=== PATIENT | male | born 1965 | race American Indian/Alaskan Native ===

== ENCOUNTER 2018-03-07 12:18 | Inpatient (IN) | payer OTHER ==
[2018-03-07] MEDS ORDERED: MORPHINE IV PRN (13:40)
[2018-03-07] MEDS: LOVENOX SUB-Q SCH (15:52)
[2018-03-07 16:22] LABS: Basophils % (Auto) 0.1 % (0.0-1.8); Hematocrit 34.8 % (35.5-45.6); Hemoglobin 11.8 gm/dl (11.8-15.2); Lymphocytes # (Auto) 0.6 K/mm3 (1.2-5.4); Lymphocytes % (Auto) 9.8 % (13.4-35.0); Mean Corpuscular HGB Conc 34 % (32-34); Mean Corpuscular Hemoglobin 31 pg (28-32); Mean Corpuscular Volume 93 fl (84-94); Monocytes # (Auto) 0.5 K/mm3 (0.0-0.8); Platelet Count 166 K/mm3 (140-440); Red Blood Count 3.76 M/mm3 (3.65-5.03); Red Cell Distribution Width 15.1 % (13.2-15.2)
[2018-03-07 16:27] LABS: INR 0.92 (0.87-1.13)
[2018-03-07 16:28] LABS: Partial Thromboplastin Time 28.3 Sec. (24.2-36.6)
[2018-03-07 16:33] LABS: Uric Acid 7.4 mg/dL (3.5-7.6)
[2018-03-07 16:34] LABS: Chol/HDL Ratio 1.6 %
[2018-03-07 16:36] LABS: Alanine Aminotransferase 10 units/L (7-56); Albumin 3.7 g/dL (3.9-5); BUN/Creatinine Ratio 10; Blood Urea Nitrogen 7 mg/dL (9-20); Hemolysis Index 2
[2018-03-07] MEDS: PEPCID IV SCH (17:54)
[2018-03-07] MEDS ORDERED: NORCO 5/325 PO PRN (17:57)
--- NOTE | 2018-03-07 18:25 | History and Physical Report ---
History of Present Illness Date of examination: 03/07/18 Date of admission: 03/07/18 13:50 Chief complaint: Left knee pain and swelling of the left knee. History of present illness: This is a 52 year old male with a history of hypertension , alcohol use disorder ,gout and recurrent left knee pain with effusion who presented to our office yesterday with pain and swelling of the left knee. He was unable to ambulate. The patient drinks multiple bears daily and has had recurrent left knee effusion with drainage. Last drainage with intra-arthicular depomedrol injection was done on 03/06/18 in the office and yielded 110cc serous fluid. Despite knee drainage, the patient continued to complain of excruciating pain and difficulty walking. He call our offcie with same none relenting pain. with swelling. The patient was then admitted to the hospital for possible cellulites. The patient has been referred to orthopedic in the past but did not consistently f/u. Medications and Allergies Allergies Allergy/AdvReac Type Severity Reaction Status Date / Time No Known Allergies Allergy Verified 04/24/15 07:56 Home Medications Medication Instructions Recorded Confirmed Last Taken Type Ibuprofen [Motrin] 800 mg PO Q8H #30 tablet 05/18/14 03/07/18 Unknown Rx Colchicine 0.6 mg PO BID 04/24/15 03/07/18 04/23/15 History NexIUM 40 mg PO DAILY 04/24/15 03/07/18 04/23/15 History HYDROcodone/APAP 5-325 [[place] 1 each PO Q6HR PRN #12 tablet 02/14/16 03/07/18 Unknown Rx 5/325] Allopurinol [Zyloprim] 300 mg PO QDAY 03/07/18 03/07/18 Unknown History Amlodipine Besylate/Benazepril 1 each PO DAILY 03/07/18 03/07/18 Unknown History [Amlodipine-Benazepril 5-10 mg] Folic Acid [Folvite] 1 mg PO QDAY 03/07/18 03/07/18 Unknown History Active Meds: Active Medications Acetaminophen/Hydrocodone Bitart ([place] 5/325) 1 each PO Q6HR PRN PRN Reason: Pain Colchicine (Colchicine) 0.6 mg PO BID [facility] Enoxaparin Sodium (Lovenox) 40 mg SUB-Q QDAY [facility] Last Admin: 03/07/18 15:52 Dose: 40 mg Famotidine (Pepcid) 20 mg IV QDAY JUAN J Last Admin: 03/07/18 17:54 Dose: 20 mg Folic Acid (Folvite) 1 mg PO QDAY JUAN J Hydromorphone HCl (Dilaudid) 2 mg IV Q4H PRN PRN Reason: Pain , Severe (7-10) Ceftriaxone Sodium (Rocephin/Ns 1 Gm/50 Ml) 1 gm in 50 mls @ 100 mls/hr IV Q24HR JUAN J; Protocol Ibuprofen (Motrin) 800 mg PO Q8H JUAN J Miscellaneous Medication (Amlodipine Besylate/Benazepril [Amlodipine-Benazepril 5-10 Mg]) 10 each PO DAILY [facility] Miscellaneous Medication (Colchicine) 0.6 mg PO BID JUAN J Miscellaneous Medication (Nexium) 40 mg PO DAILY [facility] Pneumococcal Polyvalent Vaccine (Pneumovax 23) 0.5 ml IM .ONCE ONE Stop: 03/08/18 12:01 Exam - Constitutional Vitals: Temp Pulse Resp BP Pulse Ox 100 H 20 160/63 97 03/07/18 15:55 03/07/18 15:55 03/07/18 15:55 03/07/18 15:55 Results - Labs CBC & Chem 7: 03/07/18 15:50 03/07/18 15:49 Labs: Abnormal lab results 03/07/18 03/07/18 03/07/18 Range/Units 15:42 15:49 15:50 Hct 34.8 L (35.5-45.6) % Lymph % (Auto) 9.8 L (13.4-35.0) % [place] % (Auto) 8.0 H (0.0-7.3) % Lymph # 0.6 L (1.2-5.4) K/mm3 Seg Neutrophils % 82.1 H (40.0-70.0) % Sodium 135 L (137-145) mmol/L Chloride 95.9 L (98-107) mmol/L BUN 7 L (9-20) mg/dL Creatinine 0.7 L (0.8-1.5) mg/dL Glucose 109 H (75-100) mg/dL Albumin 3.7 L (3.9-5) g/dL LDL Cholesterol Direct 42 L (50-130) mg/dL HDL Cholesterol 80 H (40-59) mg/dL Assessment and Plan - Patient Problems (1) Knee effusion, left Onset Date: 03/07/18 Current Visit: Yes Status: Acute Plan to address problem: Xray of the letf knee, iv ceftriaxoen, pain control with narcotic (2) Cellulitis and abscess of left leg Onset Date: 03/07/18 Current Visit: Yes Status: Acute Plan to address problem: Elevate foot. Venous doopler iv antibiotic
[2018-03-07] MEDS: ROCEPHIN/NS 1 GM/50 ML 1 GM/50 ML BAG IV SCH (18:29)
[2018-03-07] MEDS: COLCHICINE PO SCH ×2 (18:29→22:10)
[2018-03-07] MEDS: DILAUDID IV PRN (18:30)
[2018-03-07] MEDS: MOTRIN PO SCH (18:39)
[2018-03-07] MEDS: AMLODIPINE BESYLATE PO SCH (18:39)
[2018-03-07] MEDS: BENAZEPRIL PO SCH (18:39)
--- NOTE | 2018-03-07 19:47 | XRay Report ---
FINAL REPORT EXAM: XR KNEE 3V LT HISTORY: Left knee effusion TECHNIQUE: Left knee three views PRIORS: None. FINDINGS: No fracture is identified. No dislocation seen. There is moderate joint effusion. Patella demonstrates normal positioning. No acute bony abnormality identified. IMPRESSION: Joint effusion
[2018-03-07] MEDS ORDERED: NON-FORMULARY (Colchicine 0.6 MG) PO SCH (22:00)
[2018-03-08] MEDS: MOTRIN PO SCH ×3 (02:03→17:08)
[2018-03-08 05:56] LABS: Red Blood Count 3.51 M/mm3 (3.65-5.03)
[2018-03-08 05:57] LABS: Basophils % (Auto) 0.4 % (0.0-1.8); Eosinophils % (Auto) 0.5 % (0.0-4.3); Hematocrit 33.1 % (35.5-45.6); Hemoglobin 11.1 gm/dl (11.8-15.2); Lymphocytes # (Auto) 0.7 K/mm3 (1.2-5.4); Lymphocytes % (Auto) 21.6 % (13.4-35.0); Mean Corpuscular HGB Conc 33 % (32-34); Mean Corpuscular Hemoglobin 32 pg (28-32); Mean Corpuscular Volume 94 fl (84-94); Monocytes # (Auto) 0.4 K/mm3 (0.0-0.8); Monocytes % (Auto) 12.8 % (0.0-7.3); Platelet Count 155 K/mm3 (140-440); Red Cell Distribution Width 14.9 % (13.2-15.2)
[2018-03-08 06:00] LABS: Alanine Aminotransferase 11 units/L (7-56); Albumin 3.3 g/dL (3.9-5); BUN/Creatinine Ratio 11; Blood Urea Nitrogen 10 mg/dL (9-20); Calcium 8.9 mg/dL (8.4-10.2); Hemolysis Index 2
[2018-03-08] MEDS: ZESTRIL PO SCH (09:47)
[2018-03-08] MEDS: COLCHICINE PO SCH ×2 (09:47→23:02)
[2018-03-08] MEDS: DILAUDID IV PRN ×2 (09:47→17:08)
[2018-03-08] MEDS: ROCEPHIN/NS 1 GM/50 ML 1 GM/50 ML BAG IV SCH (09:47)
[2018-03-08] MEDS: NORVASC PO SCH (09:48)
[2018-03-08] MEDS: FOLVITE PO SCH (09:48)
[2018-03-08] MEDS: LOVENOX SUB-Q SCH (09:48)
[2018-03-08] MEDS: BENAZEPRIL PO SCH (09:48)
[2018-03-08] MEDS: PEPCID IV SCH (09:48)
[2018-03-08] MEDS: AMLODIPINE BESYLATE PO SCH (09:48)
[2018-03-08] MEDS: PROTONIX PO SCH (09:49)
[2018-03-08] MEDS ORDERED: NON-FORMULARY (Nexium 40 MG) PO SCH (10:00)
[2018-03-08] MEDS ORDERED: PNEUMOVAX 23 IM ONE (12:00)
--- NOTE | 2018-03-08 14:32 | Progress Note ---
Assessment and Plan - Patient Problems (1) Knee effusion, left Onset Date: 03/07/18 Current Visit: Yes Status: Acute Plan to address problem: Xray of the left knee showed joint effusion, iv ceftriaxone, pain control with narcotic (2) Cellulitis and abscess of left leg Onset Date: 03/07/18 Current Visit: Yes Status: Acute Plan to address problem: Elevate foot. Venous doppler Continue with iv antibiotic (3) Hypertension Current Visit: Yes Status: Acute Qualifiers: Hypertension type: essential hypertension Qualified Code(s): I10 - Essential (primary) hypertension Plan to address problem: controlled on oral antihypertensive Subjective Date of service: 03/08/18 Principal diagnosis: left knee joint effusion, cellulitis left leg Interval history: Pain in the left knee getting better. No fever or chills Objective - Exam Narrative Exam: Constitutional: Well-nourished well-developed. In no distress Head: Normocephalic atraumatic Eyes: Pupils are equal round and reactive to light Nose: No enlarged turbinates, no septal deviation. Mouth: Moist mucous membranes. Neck: Supple no thyromegaly. No bruit. No JVD Heart: Regular rate and rhythm, S1-S2 abnormal. No rubs murmurs or gallop Lungs: Clear to auscultation bilaterally no rales or rhonchi Abdomen: Soft, nontender. Bowel sound are present. Extremities: tender asn swelling left knee with sight edema the leg. No cyanosis and no clubbing. Neuro: Alert oriented Oriented x3. No focal sensory or motor deficit. Skin: No rashes no hyperemic spots Psychiatry: Euthymic. Calm. MSK: slightly flatulent left knee - Constitutional Vitals: Vital Signs - 12hr 03/08/18 03/08/18 05:31 12:28 Temperature 98.2 F 97.9 F Pulse Rate 66 69 Respiratory 18 22 Rate Blood Pressure 137/66 126/54 O2 Sat by Pulse 100 98 Oximetry - Labs CBC & Chem 7: 03/08/18 04:22 03/08/18 04:22 Labs: Abnormal lab results 03/07/18 03/07/18 03/07/18 Range/Units 15:42 15:49 15:50 WBC (4.5-11.0) K/mm3 RBC (3.65-5.03) M/mm3 Hgb (11.8-15.2) gm/dl Hct 34.8 L (35.5-45.6) % Lymph % (Auto) 9.8 L (13.4-35.0) % [place] % (Auto) 8.0 H (0.0-7.3) % Lymph # 0.6 L (1.2-5.4) K/mm3 Seg Neutrophils % 82.1 H (40.0-70.0) % Sodium 135 L (137-145) mmol/L Chloride 95.9 L (98-107) mmol/L BUN 7 L (9-20) mg/dL Creatinine 0.7 L (0.8-1.5) mg/dL Glucose 109 H (75-100) mg/dL Albumin 3.7 L (3.9-5) g/dL LDL Cholesterol Direct 42 L (50-130) mg/dL HDL Cholesterol 80 H (40-59) mg/dL 03/08/18 03/08/18 Range/Units 04:22 04:22 WBC 3.4 L (4.5-11.0) K/mm3 RBC 3.51 L (3.65-5.03) M/mm3 Hgb 11.1 L (11.8-15.2) gm/dl Hct 33.1 L (35.5-45.6) % Lymph % (Auto) (13.4-35.0) % [place] % (Auto) 12.8 H (0.0-7.3) % Lymph # 0.7 L (1.2-5.4) K/mm3 Seg Neutrophils % (40.0-70.0) % Sodium (137-145) mmol/L Chloride 97.6 L (98-107) mmol/L BUN (9-20) mg/dL Creatinine (0.8-1.5) mg/dL Glucose 109 H (75-100) mg/dL Albumin 3.3 L (3.9-5) g/dL LDL Cholesterol Direct (50-130) mg/dL HDL Cholesterol (40-59) mg/dL
[2018-03-08] MEDS: ZYLOPRIM PO SCH (17:08)
--- NOTE | 2018-03-08 17:37 | Vascular Lab Report ---
Left Lower Extremity Venous Duplex Study: Reason for Exam: Pain and swelling of the left lower extremity. Comments on the Right: A limited duplex study was done of the proximal veins of the right lower extremity. All veins visualized are freely compressible without evidence of internal echogenicity. Flow is spontaneous and phasic throughout. No evidence of acute or chronic thrombus is seen in any of the vessels visualized. Comments on the Left: All veins visualized are freely compressible without evidence of internal echogenicity. Flow is spontaneous and phasic throughout. No evidence of acute or chronic thrombus is seen in any of the vessels visualized. A soft tissue change in the left knee area is consistent with a Parson's cyst. Impression: No evidence of acute or chronic deep venous thrombosis in the left lower extremity. A soft tissue change in the left knee area is consistent with a Parson's cyst.
--- NOTE | 2018-03-09 08:53 | Progress Note ---
Assessment and Plan - Patient Problems (1) Knee effusion, left Onset Date: 03/07/18 Current Visit: Yes Status: Acute Plan to address problem: Xray of the left knee showed joint effusion, iv ceftriaxone, pain control with narcotic NSAID Physical therapy (2) Cellulitis and abscess of left leg Onset Date: 03/07/18 Current Visit: Yes Status: Acute Plan to address problem: Elevate foot. Venous doppler Continue with iv antibiotic (3) Hypertension Current Visit: Yes Status: Acute Qualifiers: Hypertension type: essential hypertension Qualified Code(s): I10 - Essential (primary) hypertension Plan to address problem: controlled on oral antihypertensives. Subjective Date of service: 03/09/18 Principal diagnosis: left knee joint effusion, cellulitis left leg Interval history: Pain in the left knee getting better. No fever or chills Objective - Exam Narrative Exam: Constitutional: Well-nourished well-developed.In no distress Head: Normocephalic atraumatic Eyes: Pupils are equal round and reactive to light Nose: No enlarged turbinates, no septal deviation. Mouth: Moist mucous membranes. Neck: Supple no thyromegaly. No bruit. No JVD Heart: Regular rate and rhythm, S1-S2 abnormal. No rubs murmurs or gallop Lungs: Clear to auscultation bilaterally no rales or rhonchi Abdomen: Soft, nontender. Bowel sound are present. Extremities: Tender and swelling left knee with sight edema the leg. No cyanosis and no clubbing. Neuro: Alert oriented Oriented x3. No focal sensory or motor deficit. Skin: No rashes no hyperemic spots Psychiatry: Euthymic. Calm. MSK: slightly flatulent left knee - Constitutional Vitals: Vital Signs - 12hr 03/08/18 03/09/18 22:57 06:08 Temperature 98.3 F 98.0 F Pulse Rate 67 71 Respiratory 18 18 Rate Blood Pressure 126/66 131/76 O2 Sat by Pulse 100 97 Oximetry - Labs CBC & Chem 7: 03/08/18 04:22 03/08/18 04:22
[2018-03-09] MEDS ORDERED: XYLOCAINE MPF 2% INFILTRATI ONE (10:00)
[2018-03-09] MEDS ORDERED: DEPO-Medrol INTRA-ARTI ONE (10:00)
--- NOTE | 2018-03-09 10:07 | Consultation ---
History of Present Illness - [facility] Consult date: 03/08/18 Consult reason: joint pain History of present illness: 52-year-old male who complains of left knee pain and swelling last several days past medical history is significant for history of gout with multiple gouty flareups at both knees and feet within the last several years. He denies a history of recent trauma states the pain and swelling came up gradually has gotten worse over time patient stated was difficult for him to place any weight on his left lower extremity Medications and Allergies Allergies Allergy/AdvReac Type Severity Reaction Status Date / Time No Known Allergies Allergy Verified 04/24/15 07:56 Home Medications Medication Instructions Recorded Confirmed Last Taken Type Ibuprofen [Motrin] 800 mg PO Q8H #30 tablet 05/18/14 03/07/18 Unknown Rx Colchicine 0.6 mg PO BID 04/24/15 03/07/18 04/23/15 History NexIUM 40 mg PO DAILY 04/24/15 03/07/18 04/23/15 History HYDROcodone/APAP 5-325 [[place] 1 each PO Q6HR PRN #12 tablet 02/14/16 03/07/18 Unknown Rx 5/325] Allopurinol [Zyloprim] 300 mg PO QDAY 03/07/18 03/07/18 Unknown History Amlodipine Besylate/Benazepril 1 each PO DAILY 03/07/18 03/07/18 Unknown History [Amlodipine-Benazepril 5-10 mg] Folic Acid [Folvite] 1 mg PO QDAY 03/07/18 03/07/18 Unknown History Active Meds: Active Medications Acetaminophen/Hydrocodone Bitart ([place] 5/325) 1 each PO Q6HR PRN PRN Reason: Pain Allopurinol (Zyloprim) 300 mg PO QDAY [facility] Last Admin: 03/08/18 17:08 Dose: 300 mg Amlodipine Besylate (Norvasc) 5 mg PO QDAY [facility] Last Admin: 03/08/18 09:48 Dose: 5 mg Colchicine (Colchicine) 0.6 mg PO BID [facility] Last Admin: 03/08/18 23:02 Dose: 0.6 mg Enoxaparin Sodium (Lovenox) 40 mg SUB-Q QDAY [facility] Last Admin: 03/08/18 09:48 Dose: 40 mg Famotidine (Pepcid) 20 mg IV QDAY [facility] Last Admin: 03/08/18 09:48 Dose: 20 mg Folic Acid (Folvite) 1 mg PO QDAY [facility] Last Admin: 03/08/18 09:48 Dose: 1 mg Hydromorphone HCl (Dilaudid) 2 mg IV Q4H PRN PRN Reason: Pain , Severe (7-10) Last Admin: 03/08/18 17:08 Dose: 2 mg Ceftriaxone Sodium (Rocephin/Ns 1 Gm/50 Ml) 1 gm in 50 mls @ 100 mls/hr IV Q24HR [facility]; Protocol Last Admin: 03/08/18 09:47 Dose: 100 mls/hr Ibuprofen (Motrin) 800 mg PO Q8H [facility] Last Admin: 03/08/18 17:08 Dose: 800 mg Lisinopril (Zestril) 10 mg PO QDAY [facility] Last Admin: 03/08/18 09:47 Dose: 10 mg Pantoprazole Sodium (Protonix) 40 mg PO DAILY [facility] Last Admin: 03/08/18 09:49 Dose: 40 mg Physical Examination - Physical exam Narrative exam: At the left knee patient was noted have to 3+ joint effusion there is no redness or erythema slightly warm to touch and tender on palpation patient has decreased active range of motion with a reasonable exam was unremarkable Plain x-rays taken on admission were read by me on remarkable for fracture dislocation or degenerative changes essentially normal findings Eyes: PERRL ENT: Positive: clear oral mucosa Respiratory effort: normal Respiratory: bilateral: CTA Rhythm: regular Heart Sounds: Positive: S1 & S2 General gastrointestinal: Positive: soft, non-tender, non-distended, normal bowel sounds Integumentary: clear, warm, dry Neurologic: Positive: CNII-XII intact, moves all extremities, gait normal. Negative: focal deficits - Cervical Spine Neck pain: none Tenderness with palpation: none Full ROM: yes ROM: flexion: normal ROM: extension: normal ROM: rotation right: normal ROM: rotation left: normal ROM: lateral flexion right: normal ROM: lateral flexion left: normal - Lumbar Spine Back pain: none Tenderness with palpation: none Appearance: normal Full ROM: yes ROM: flexion: normal ROM: extension: normal ROM: rotation right: normal ROM: rotation left: normal ROM: lateral flexion right: normal ROM: lateral flexion left: normal Assessment and Plan Left knee effusion patient is status post joint aspiration Continue with IV medication patient can also undergo physical therapy for range of motion and gait training
[2018-03-09] MEDS: ROCEPHIN/NS 1 GM/50 ML 1 GM/50 ML BAG IV SCH (10:48)
[2018-03-09] MEDS: LOVENOX SUB-Q SCH (10:49)
[2018-03-09] MEDS: PROTONIX PO SCH (10:50)
[2018-03-09] MEDS: NORVASC PO SCH (10:50)
[2018-03-09] MEDS: ZYLOPRIM PO SCH (10:50)
[2018-03-09] MEDS: FOLVITE PO SCH (10:50)
[2018-03-09] MEDS: COLCHICINE PO SCH ×2 (10:50→22:30)
[2018-03-09] MEDS: ZESTRIL PO SCH (10:50)
[2018-03-09] MEDS: MOTRIN PO SCH ×2 (10:57→22:29)
[2018-03-09] MEDS: PEPCID IV SCH (10:58)
[2018-03-09] MEDS: DILAUDID IV PRN (13:27)
[2018-03-10 07:02] VITALS: BP 156/69
[2018-03-10] MEDS: DILAUDID IV PRN (07:41)
--- NOTE | 2018-03-10 08:22 | Discharge Summary ---
Providers - Providers Date of Admission: 03/07/18 13:50 Date of discharge: 03/10/18 Attending physician: NELSON ELIZALDE 03/07/18 14:20 Consult to Physician [CONS] Routine Comment: Consulting Provider: ANNABELLE SHI Physician Instructions: Reason For Exam: RECURRENT LT. KNEE EFFUSION 03/08/18 15:25 Physical Therapy Evaluation and Treat [CONS] Routine Comment: Reason For Exam: left knee pain/ decrease in ambulation Primary care physician: NELSON ELIZALDE Hospitalization Reason for admission: cellulitis right leg, right knee effusion Condition: Good Pertinent studies: xray left knee that showed effusion Procedures: left knee aspiration with drainage of 90ml of straw colored fluid Hospital course: This is a 52 year old male with a history of hypertension , alcohol use disorder ,gout and recurrent left knee pain with effusion who presented to our office yesterday with pain and swelling of the left knee. He was unable to ambulate. The patient drinks multiple bears daily and has had recurrent left knee effusion with drainage. Last drainage with intra-arthicular depomedrol injection was done on 03/06/18 in the office and yielded 110cc serous fluid. Despite knee drainage, the patient continued to complain of excruciating pain and difficulty walking. He call our offcie with same none relenting pain. with swelling. The patient was then admitted to the hospital for possible cellulites. The patient has been referred to orthopedic in the past but did not consistently f/u. Pt on admission ws commence on iv antibiotic and colchicine. continued to have increasing swelling of the left knee. anotehr aspiration was done by the bed side. 90 ml of straw colored fluid aspirated with intrarticular injection of 80 mg opf depomedrol. swelling ans rednessof the left leg inmproved as well as the pain as pt was on narcotic on admission for pain control. Pt is beign discharged to f/u with pcp in 3-5 days and continue with home PT Disposition: TO HOME OR SELFCARE - Discharge Diagnoses (1) Knee effusion, left Status: Acute (2) Cellulitis and abscess of left leg Status: Acute (3) Hypertension Status: Acute Qualifiers: Hypertension type: essential hypertension Qualified Code(s): I10 - Essential (primary) hypertension Core Measure Documentation - Palliative Care Palliative Care/ Comfort Measures: Not Applicable - Core Measures Any of the following diagnoses?: none Exam - Physical Exam Narrative exam: Constitutional: Well-nourished well-developed.In no distress Head: Normocephalic atraumatic Eyes: Pupils are equal round and reactive to light Nose: No enlarged turbinates, no septal deviation. Mouth: Moist mucous membranes. Neck: Supple no thyromegaly. No bruit. No JVD Heart: Regular rate and rhythm, S1-S2 abnormal. No rubs murmurs or gallop Lungs: Clear to auscultation bilaterally no rales or rhonchi Abdomen: Soft, nontender. Bowel sound are present. Extremities: Tender and swelling left knee with sight edema the leg imporved. No cyanosis and no clubbing. Neuro: Alert oriented Oriented x3. No focal sensory or motor deficit. Skin: No rashes no hyperemic spots Psychiatry: Euthymic. Calm. MSK: slightly flatulent left knee - Constitutional Vitals: Temp Pulse Resp BP Pulse Ox 98.7 F 84 20 156/69 97 03/10/18 06:18 03/10/18 06:18 03/10/18 06:18 03/10/18 06:18 03/10/18 06:18 Plan Activity: advance as tolerated Weight Bearing Status: Partial Weight Bearing Diet: regular Special Instructions: physical therapy Durable Medical Equipment Needed Upon Discharge: Walker-Rolling (one pair) Follow up with: NELSON ELIZALED MD [Primary Care Provider] - 7 Days Prescriptions: Allopurinol [Zyloprim] 300 mg PO QDAY #30 tablet Allopurinol [Zyloprim] 300 mg PO QDAY #30 tablet HYDROcodone/APAP 5-325 [[place] 5-325 mg TAB] 1 - 2 each PO Q6HR PRN #20 tablet PRN Reason: Pain NexIUM 40 mg PO DAILY #30
[2018-03-10] MEDS: ROCEPHIN/NS 1 GM/50 ML 1 GM/50 ML BAG IV SCH (10:31)
[2018-03-10] MEDS: MOTRIN PO SCH (10:31)
[2018-03-10] MEDS: PROTONIX PO SCH (10:32)
[2018-03-10] MEDS: FOLVITE PO SCH (10:32)
[2018-03-10] MEDS: ZESTRIL PO SCH (10:32)
[2018-03-10] MEDS: ZYLOPRIM PO SCH (10:33)
[2018-03-10] MEDS: PEPCID IV SCH (10:33)
[2018-03-10] MEDS: COLCHICINE PO SCH (10:34)
[2018-03-10] MEDS: NORVASC PO SCH (10:34)
== END 2018-03-10 12:17 | disposition home or self-care (01) | DRG 603 ==
LOC: EDSTATUS 12:44 → 3A 13:50
PROVIDERS: ADMIT Family Medicine; ATTEND Family Medicine
PROC: 0S9D3ZZ Drainage of Left Knee Joint, Percutaneous Approach (ICD-10-PCS; principal; 2018-03-08)
PROC: 3E0234Z Introduction of Serum, Toxoid and Vaccine into Muscle, Percutaneous Approach (ICD-10-PCS; 2018-03-08)
DX: L03.116 Cellulitis of left lower limb (principal); M25.462 Effusion, left knee; L02.416 Cutaneous abscess of left lower limb; Z23 Encounter for immunization; I10 Essential (primary) hypertension; M10.9 Gout, unspecified; Z72.89 Other problems related to lifestyle
CPT/HCPCS: 36415; 80053; 80061; 82140; 83735; 84100; 84550; 85025; 85610; 85730; 87116; 90732; J0696; J1040; J1170; J1650; J2270

== ENCOUNTER 2020-05-13 12:15 | Outpatient (CLI) | payer OTHER ==
--- NOTE | 2020-05-14 17:49 | XRay Report ---
XR foot BILAT 2V INDICATION: BILAT FOOT PAIN. COMPARISON: None available. FINDINGS: There is no acute fracture or subluxation. There is mild DJD in both first MTP joints with bilateral hallux valgus angulation. There is no radiopaque foreign body or soft tissue gas. There are scattered atherosclerotic vascular calcifications. Signer Name: Juliocesar Anaya MD Signed: 05/14/2020 5:44 PM Workstation Name: [id number]
--- NOTE | 2020-05-14 17:56 | XRay Report ---
LUMBAR SPINE 3 VIEW INDICATION / CLINICAL INFORMATION: BACK PAIN. COMPARISON: None available. FINDINGS: BONES/JOINT(S): There is moderate degenerative disc disease at L4-5 with mild degenerative disc disea se at L2-3, L3-4, and L5-S1, with disc height loss and endplate osteophyte formation. There is minima l left convex scoliosis with the apex at the L3-4 level. Sagittal alignment appears largely normal. SOFT TISSUES: There is atherosclerotic calcification in the abdominal aorta. ADDITIONAL FINDINGS: None. Signer Name: Juliocesar Anaya MD Signed: 05/14/2020 5:51 PM Workstation Name: [id number]
== END 2020-05-13 12:16 | disposition home or self-care (01) ==
LOC: XRAY 12:15
PROVIDERS: ATTEND Internal Medicine
DX: M19.072 Primary osteoarthritis, left ankle and foot (principal); M19.071 Primary osteoarthritis, right ankle and foot; M20.12 Hallux valgus (acquired), left foot; M20.11 Hallux valgus (acquired), right foot; M51.37 Other intervertebral disc degeneration, lumbosacral region; M41.86 Other forms of scoliosis, lumbar region; I70.0 Atherosclerosis of aorta; I10 Essential (primary) hypertension; M10.9 Gout, unspecified
CPT/HCPCS: 72100

== ENCOUNTER 2020-12-02 11:48 | Emergency (ER) | payer OTHER ==
[2020-12-02 14:37] LABS: Basophils % (Auto) 0.5 % (0.0-1.8); Eosinophils # (Auto) 0.1 K/mm3 (0.0-0.4); Eosinophils % (Auto) 1.6 % (0.0-4.3); Hematocrit 30.3 % (35.5-45.6); Hemoglobin 10.2 gm/dl (11.8-15.2); Lymphocytes % (Auto) 19.4 % (13.4-35.0); Mean Corpuscular HGB Conc 34 % (32-34); Mean Corpuscular Volume 102 fl (84-94); Monocytes # (Auto) 0.3 K/mm3 (0.0-0.8); Monocytes % (Auto) 5.6 % (0.0-7.3); Platelet Count 116 K/mm3 (140-440); Red Blood Count 2.97 M/mm3 (3.65-5.03); Red Cell Distribution Width 17.6 % (13.2-15.2)
[2020-12-02 14:55] LABS: Alanine Aminotransferase 17 units/L (7-56); Albumin 4.2 g/dL (3.9-5); BUN/Creatinine Ratio 9; Blood Urea Nitrogen 10 mg/dL (9-20); Calcium 9.4 mg/dL (8.4-10.2); Hemolysis Index 1
--- NOTE | 2020-12-02 15:05 | Event Note ---
ED Screening Note Date of service: 12/02/20 Time: 15:05 ED Screening Note: 55-year-old male patient with history of hypertension presents to the emergency department with complaints of dizziness, headaches, palpitations, and paresthesias in his feet for approximately 1 year. Patient states his symptoms worsened today. He has never been evaluated for the symptoms before. No preceding fall, trauma, or injury. No chest pain or shortness of breath. Tachycardic in triage. General: Awake, appropriately interactive, no acute distress. Neck: Supple. Full range of motion intact. Cardiovascular: Normal peripheral perfusion. Pulmonary: No respiratory distress. Patient is speaking normally without use of accessory muscles. Skin: No apparent rashes or lesions. Neurological: No facial asymmetry. Speech is clear. Follows commands. Patient is alert and oriented. Musculoskeletal: Moves all four extremities spontaneously with normal range of motion. Psych: Cooperative. Appropriate mood and affect. I have greeted and performed a focused rapid initial assessment of this patient. A comprehensive ED assessment and evaluation of the patient, analysis of all test results, and completion of the medical decision-making process will be conducted by additional ED providers. This initial assessment/diagnostic orders/clinical plan/treatment(s) is/are subject to change based on patients health status, clinical progression and re-assessment. Further treatment and workup at subsequent clinical provider's discretion. Patient/guardian urged not to elope from the ED as their condition may be serious if not clinically assessed and managed.
[2020-12-02 15:09] LABS: Bacteria,Urine 1+ /HPF (Negative); Bilirubin,Urine NEG (Negative); Blood,Urine LG (Negative); Color,Urine Yellow (Yellow); Mucus,Urine FEW /HPF; Urobilinogen,Urine < 2.0 mg/dL (<2.0)
--- NOTE | 2020-12-02 15:53 | XRay Report ---
CHEST 2 VIEWS INDICATION / CLINICAL INFORMATION: dizziness/palpitations. COMPARISON: None available. FINDINGS: SUPPORT DEVICES: None. HEART / MEDIASTINUM: No significant abnormality. LUNGS / PLEURA: No significant pulmonary or pleural abnormality. No pneumothorax. ADDITIONAL FINDINGS: No significant additional findings. IMPRESSION: 1. No acute findings. Signer Name: David Hartman MD Signed: 12/02/2020 3:48 PM Workstation Name: [id number]
[2020-12-02] MEDS ORDERED: LORazepam 2 MG/ML VIAL ONE (15:57)
--- NOTE | 2020-12-02 17:07 | Emergency Department Report ---
ED General Adult HPI - General Chief complaint: Dizziness Stated complaint: DIZZINESS, FEET PAIN PUI?: No Time Seen by Provider: 12/02/20 15:37 Source: patient Mode of arrival: Ambulatory Limitations: No Limitations - History of Present Illness Initial comments: This is a 55-year-old male with a history of hypertension who presents to the ED complaining of intermittent dizziness and peripheral tingling sensation in his hands and feet. Patient states that this has been going on for some time now close to a year. Patient states that today he began experiencing intermittent dizziness which was new. Patient states that he just felt dizzy for a bit which resolved. Patient denies any nausea, vomiting, diarrhea, abdominal pain, headache, blurry vision - Related Data Home Medications Medication Instructions Recorded Confirmed Last Taken Colchicine 0.6 mg PO BID 04/24/15 03/07/18 04/23/15 Amlodipine Besylate/Benazepril 1 each PO DAILY 03/07/18 03/07/18 Unknown [Amlodipine-Benazepril 5-10 mg] Folic Acid [Folvite] 1 mg PO QDAY 03/07/18 03/07/18 Unknown Previous Rx's Medication Instructions Recorded Last Taken Type Ibuprofen [Motrin 800 MG tab] 800 mg PO Q8H #30 tablet 05/18/14 Unknown Rx Colchicine 0.6 mg PO BID capsule 03/10/18 Unknown Rx HYDROcodone/APAP 5-325 [[place] 1 - 2 each PO Q6HR PRN #20 tablet 03/10/18 Unknown Rx 5-325 mg TAB] NexIUM 40 mg PO DAILY #30 03/10/18 Unknown Rx allopurinoL [Zyloprim] 300 mg PO QDAY #30 tablet 03/10/18 Unknown Rx allopurinoL [Zyloprim] 300 mg PO QDAY #30 tablet 03/10/18 Unknown Rx amLODIPine 5 mg PO QDAY tablet 03/10/18 Unknown Rx Ciprofloxacin HCl [Ciprofloxacin 750 mg PO BID #10 tablet 12/02/20 Unknown Rx TAB] Gabapentin 300 mg PO TID #30 capsule 12/02/20 Unknown Rx Allergies Allergy/AdvReac Type Severity Reaction Status Date / Time No Known Allergies Allergy Verified 04/24/15 07:56 ED Review of Systems ROS: Stated complaint: DIZZINESS, FEET PAIN Other details as noted in HPI Comment: All other systems reviewed and negative ED Past Medical Hx - Past Medical History Previous Medical History?: Yes Hx Hypertension: Yes Hx Renal Disease: No Hx Arthritis: Yes Hx Seizures: No Additional medical history: gout - Surgical History Additional Surgical History: r knee surgery - Social History Smoking Status: Former Smoker - Medications Home Medications: Home Medications Medication Instructions Recorded Confirmed Last Taken Type Ibuprofen [Motrin 800 MG tab] 800 mg PO Q8H #30 tablet 05/18/14 03/07/18 Unknown Rx Colchicine 0.6 mg PO BID 04/24/15 03/07/18 04/23/15 History Amlodipine Besylate/Benazepril 1 each PO DAILY 03/07/18 03/07/18 Unknown History [Amlodipine-Benazepril 5-10 mg] Folic Acid [Folvite] 1 mg PO QDAY 03/07/18 03/07/18 Unknown History Colchicine 0.6 mg PO BID capsule 03/10/18 Unknown Rx HYDROcodone/APAP 5-325 [[place] 1 - 2 each PO Q6HR PRN #20 tablet 03/10/18 Unknown Rx 5-325 mg TAB] NexIUM 40 mg PO DAILY #30 03/10/18 Unknown Rx allopurinoL [Zyloprim] 300 mg PO QDAY #30 tablet 03/10/18 Unknown Rx allopurinoL [Zyloprim] 300 mg PO QDAY #30 tablet 03/10/18 Unknown Rx amLODIPine 5 mg PO QDAY tablet 03/10/18 Unknown Rx Ciprofloxacin HCl [Ciprofloxacin 750 mg PO BID #10 tablet 12/02/20 Unknown Rx TAB] Gabapentin 300 mg PO TID #30 capsule 12/02/20 Unknown Rx ED Physical Exam - General Limitations: No Limitations General appearance: alert, in no apparent distress - Head Head exam: Present: atraumatic, normocephalic - Eye Eye exam: Present: normal appearance - ENT ENT exam: Present: mucous membranes moist - Neck Neck exam: Present: normal inspection, full ROM. Absent: tenderness - Respiratory Respiratory exam: Present: normal lung sounds bilaterally. Absent: respiratory distress - Cardiovascular Cardiovascular Exam: Present: regular rate, normal rhythm. Absent: systolic murmur, diastolic murmur, rubs, gallop - GI/Abdominal GI/Abdominal exam: Present: soft, normal bowel sounds - Rectal Rectal exam: Present: deferred - Extremities Exam Extremities exam: Present: normal inspection, full ROM. Absent: tenderness - Back Exam Back exam: Present: normal inspection, full ROM. Absent: tenderness, muscle spasm - Neurological Exam Neurological exam: Present: alert, oriented X3, CN II-XII intact, normal gait - Psychiatric Psychiatric exam: Present: normal affect, normal mood - Skin Skin exam: Present: warm, dry, intact, normal color. Absent: rash ED Course Vital Signs 12/02/20 12/02/20 12/02/20 12:31 17:35 19:15 Temperature 98.8 F Pulse Rate 118 H 94 H Respiratory 20 18 18 Rate Blood Pressure 151/69 Blood Pressure 125/79 [Right] O2 Sat by Pulse 100 98 Oximetry ED Medical Decision Making - Lab Data Result diagrams: 12/02/20 14:14 12/02/20 14:14 Laboratory Last Values WBC 5.0 K/mm3 (4.5-11.0) 12/02/20 14:14 RBC 2.97 M/mm3 (3.65-5.03) L 12/02/20 14:14 Hgb 10.2 gm/dl (11.8-15.2) L 12/02/20 14:14 Hct 30.3 % (35.5-45.6) L 12/02/20 14:14 MCV 102 fl (84-94) H 12/02/20 14:14 MCH 34 pg (28-32) H 12/02/20 14:14 MCHC 34 % (32-34) 12/02/20 14:14 RDW 17.6 % (13.2-15.2) H 12/02/20 14:14 Plt Count 116 K/mm3 (140-440) L 12/02/20 14:14 Lymph % (Auto) 19.4 % (13.4-35.0) 12/02/20 14:14 [place] % (Auto) 5.6 % (0.0-7.3) 12/02/20 14:14 Eos % (Auto) 1.6 % (0.0-4.3) 12/02/20 14:14 Baso % (Auto) 0.5 % (0.0-1.8) 12/02/20 14:14 Lymph # (Auto) 1.0 K/mm3 (1.2-5.4) L 12/02/20 14:14 [place] # (Auto) 0.3 K/mm3 (0.0-0.8) 12/02/20 14:14 Eos # (Auto) 0.1 K/mm3 (0.0-0.4) 12/02/20 14:14 Baso # (Auto) 0.0 K/mm3 (0.0-0.1) 12/02/20 14:14 Seg Neutrophils % 72.9 % (40.0-70.0) H 12/02/20 14:14 Seg Neutrophils # 3.6 K/mm3 (1.8-7.7) 12/02/20 14:14 Sodium 135 mmol/L (137-145) L 12/02/20 14:14 Potassium 3.9 mmol/L (3.6-5.0) 12/02/20 14:14 Chloride 98.7 mmol/L (98-107) 12/02/20 14:14 Carbon Dioxide 22 mmol/L (22-30) 12/02/20 14:14 Anion Gap 18 mmol/L 12/02/20 14:14 BUN 10 mg/dL (9-20) 12/02/20 14:14 Creatinine 1.1 mg/dL (0.8-1.3) 12/02/20 14:14 Estimated GFR > 60 ml/min 12/02/20 14:14 BUN/Creatinine Ratio 9 % 12/02/20 14:14 Glucose 99 mg/dL (75-100) 12/02/20 14:14 Calcium 9.4 mg/dL (8.4-10.2) 12/02/20 14:14 Magnesium 1.70 mg/dL (1.7-2.3) 12/02/20 15:16 Total Bilirubin 0.70 mg/dL (0.1-1.2) 12/02/20 14:14 AST 47 units/L (5-40) H 12/02/20 14:14 ALT 17 units/L (7-56) 12/02/20 14:14 Alkaline Phosphatase 112 units/L (35-129) 12/02/20 14:14 Troponin T < 0.010 ng/mL (0.00-0.029) 12/02/20 17:31 Total Protein 7.8 g/dL (6.3-8.2) 12/02/20 14:14 Albumin 4.2 g/dL (3.9-5) 12/02/20 14:14 Albumin/Globulin Ratio 1.2 % 12/02/20 14:14 TSH 5.410 mlU/mL (0.270-4.200) H 12/02/20 15:16 Thyroxine (T4) 6.3 ug/dL (4.0-12.0) 12/02/20 Unknown Urine Color Yellow (Yellow) 12/02/20 14:26 Urine Turbidity Slightly-cloudy (Clear) 12/02/20 14:26 Urine pH 5.0 (5.0-7.0) 12/02/20 14:26 Ur Specific [place] 1.014 (1.003-1.030) 12/02/20 14:26 Urine Protein 30 mg/dl mg/dL (Negative) 12/02/20 14:26 Urine Glucose (UA) Neg mg/dL (Negative) 12/02/20 14:26 Urine Ketones Tr mg/dL (Negative) 12/02/20 14:26 Urine Blood Lg (Negative) 12/02/20 14:26 Urine Nitrite Neg (Negative) 12/02/20 14:26 Urine Bilirubin Neg (Negative) 12/02/20 14:26 Urine Urobilinogen < 2.0 mg/dL (<2.0) 12/02/20 14:26 Ur Leukocyte Esterase Sm (Negative) 12/02/20 14:26 Urine WBC (Auto) 10.0 /HPF (0.0-6.0) H 12/02/20 14:26 Urine RBC (Auto) 19.0 /HPF (0.0-6.0) 12/02/20 14:26 U Epithel Cells (Auto) 2.0 /HPF (0-13.0) 12/02/20 14:26 Urine Bacteria (Auto) 1+ /HPF (Negative) 12/02/20 14:26 Urine Mucus Few /HPF 12/02/20 14:26 Urine Opiates Screen Presumptive negative 12/02/20 Unknown Urine Methadone Screen Presumptive negative 12/02/20 Unknown Ur Barbiturates Screen Presumptive negative 12/02/20 Unknown Ur Phencyclidine Scrn Presumptive negative 12/02/20 Unknown Ur Amphetamines Screen Presumptive negative 12/02/20 Unknown U Benzodiazepines Scrn Presumptive negative 12/02/20 Unknown Urine Cocaine Screen Presumptive negative 12/02/20 Unknown U Marijuana (THC) Screen Presumptive positive 12/02/20 Unknown Drugs of Abuse Note Disclamer 12/02/20 Unknown - Radiology Data Radiology results: report reviewed, image reviewed FINDINGS: SUPPORT DEVICES: None. HEART / MEDIASTINUM: No significant abnormality. LUNGS / PLEURA: No significant pulmonary or pleural abnormality. No pneumothorax. ADDITIONAL FINDINGS: No significant additional findings. IMPRESSION: 1. No acute findings. Signer Name: David Snell MD Signed: 12/02/2020 3:48 PM Workstation Name: [id number] Transcribed By: DINORA Dictated By: DAVID SNELL Electronically Authenticated By: DAVID SNELL Signed Date/Time: 12/02/20 1548 - Medical Decision Making This 55-year-old male who presents to ED complaining of peripheral neuropathy. All labs are within normal limits. Chest x-ray EKG shows no acute findings. Urinalysis positive for UTI. Will treat. Discussed follow-up with primary care physician for continued management. Vital signs are normal patient is in no acute distress. Discussed follow-up with neurology regarding neuropathy Patient had no neurological deficit throughout ED stay. Patient is comfortable in the ED bed. Critical care attestation.: If time is entered above; I have spent that time in minutes in the direct care of this critically ill patient, excluding procedure time. ED Disposition Clinical Impression: Bilateral leg paresthesia, Peripheral neuropathy, UTI (urinary tract infection) Disposition: - TO HOME OR SELFCARE Is pt being admited?: No Does the pt Need Aspirin: No Condition: Stable Instructions: Thyroid-Stimulating Hormone Test, Paresthesia, Peripheral Neuropathy Additional Instructions: Make sure to follow up with the primary care physician as discussed. Take all your medications as you've been prescribed. If you have any worsening symptoms or develop new symptoms please return to ED immediately. Prescriptions: Ciprofloxacin HCl [Ciprofloxacin TAB] 750 mg PO BID #10 tablet Gabapentin 300 mg PO TID #30 capsule Referrals: RADHA GOODWIN MD [Primary Care Provider] - 3-5 Days [facility] [Provider Group] - 3-5 Days Forms: Accompanied Note, Work/School Release Form(ED) Time of Disposition: 18:29
[2020-12-02 17:13] LABS: Amphetamine Screen,Urine PRESUMPTIVE NEGATIVE; Benzodiazepines Screen,Urine PRESUMPTIVE NEGATIVE; Cannabinoid Screen,Urine PRESUMPTIVE POSITIVE; Cocaine Screen,Urine PRESUMPTIVE NEGATIVE; Methadone Screen,Urine PRESUMPTIVE NEGATIVE; Opiate Screen,Urine PRESUMPTIVE NEGATIVE
[2020-12-02] MEDS ORDERED: HYDROcodone/ACETAMINOPHEN 5-325 MG TAB PO ONE (17:17)
[2020-12-02 19:16] VITALS: BP 125/79
--- NOTE | 2020-12-03 10:49 | Electrocardiograph Report ---
[facility] Test Date: 2020-12-02 Test Time: 15:43:49 Pat Name: ОЛЕГ GROSS Department: Room: Gender: M Net Architect: JOHN : 1965 Requested By: CARLOZ ARCE Order Number: [id number] Reading MD: Declan Ramos Measurements Intervals [place] Rate: 89 P: 63 NM: 143 QRS: -63 QRSD: 98 T: 11 QT: 353 QTc: 431 Interpretive Statements Sinus rhythm Probable left atrial enlargement Left anterior fascicular block Nonspecific T abnormalities, lateral leads No previous ECG available for comparison Electronically Signed On 12-03-2020 10:49:10 EDT by Declan Ramos
== END 2020-12-02 19:16 | disposition home or self-care (01) ==
LOC: ED 11:48
DX: N39.0 Urinary tract infection, site not specified (principal); G62.9 Polyneuropathy, unspecified; R20.2 Paresthesia of skin; I10 Essential (primary) hypertension; M19.91 Primary osteoarthritis, unspecified site; Z98.890 Other specified postprocedural states; Z79.1 Long term (current) use of non-steroidal anti-inflammatories (NSAID); Z79.2 Long term (current) use of antibiotics; Z79.899 Other long term (current) drug therapy
CPT/HCPCS: 36415; 71046; 80053; 80307; 81001; 83735; 84436; 84443; 84484; 85025; 87086; 93005; J2060

== ENCOUNTER 2020-12-28 07:46 | Emergency (ER) | payer OTHER ==
[2020-12-28 07:57] VITALS: BP 175/79
--- NOTE | 2020-12-28 08:00 | Emergency Department Report ---
Blank Doc - Documentation Documentation: 55-year-old male that presents with right leg and right arm swelling and pain. History of gout. 1- This initial assessment/diagnostic orders/clinical plan/ treatment(s) is/are subject to change based on pt's health status, clinical progression and re- assessment by fellow clinical providers in the ED. Further treatment and workup at subsequent clinical provers discretion. Patient/guardians urged not to elope from ED as their condition may be serious if not clinically assessed and managed. 2-exam shows 2+ bitting edema to upper and bilateral lower extremity. 3-labs obtained rule out CHF versus gout flare
[2020-12-28 08:40] LABS: Basophils % (Auto) 0.6 % (0.0-1.8); Eosinophils # (Auto) 0.3 K/mm3 (0.0-0.4); Hematocrit 22.6 % (35.5-45.6); Hemoglobin 7.8 gm/dl (11.8-15.2); Lymphocytes # (Auto) 1.4 K/mm3 (1.2-5.4); Mean Corpuscular HGB Conc 35 % (32-34); Mean Corpuscular Volume 96 fl (84-94); Monocytes # (Auto) 0.3 K/mm3 (0.0-0.8); Platelet Count 358 K/mm3 (140-440); Red Blood Count 2.35 M/mm3 (3.65-5.03); Red Cell Distribution Width 18.2 % (13.2-15.2)
[2020-12-28 08:50] LABS: Alanine Aminotransferase 6 units/L (7-56); Albumin 3.7 g/dL (3.9-5); BUN/Creatinine Ratio 8; Blood Urea Nitrogen 7 mg/dL (9-20); Hemolysis Index 2; Uric Acid 5.1 mg/dL (3.5-7.6)
--- NOTE | 2020-12-28 09:43 | XRay Report ---
CHEST 2 VIEWS INDICATION / CLINICAL INFORMATION: leg swelling r/o CHF. COMPARISON: 12/02/2020 FINDINGS: SUPPORT DEVICES: None. HEART / MEDIASTINUM: Stable. LUNGS / PLEURA: No significant pulmonary or pleural abnormality. No pneumothorax. ADDITIONAL FINDINGS: No significant additional findings. IMPRESSION: 1. No acute findings or significant interval change when compared to 12/02/2020. Signer Name: Gurdeep Perez MD Signed: 12/28/2020 9:38 AM Workstation Name: [id number]
--- NOTE | 2020-12-28 11:08 | Vascular Lab Report ---
DUPLEX DOPPLER LOWER EXTREMITY VEINS, BILATERAL INDICATION / CLINICAL INFORMATION: pain and swelling. TECHNIQUE: Duplex doppler imaging was performed through the veins of both lower extremities using venous johnnie luis and other maneuvers. COMPARISON: None available. FINDINGS: RIGHT COMMON FEMORAL VEIN: Negative. RIGHT FEMORAL VEIN: Negative. RIGHT POPLITEAL VEIN: Negative. RIGHT CALF VEINS: Negative. LEFT COMMON FEMORAL VEIN: Negative. LEFT FEMORAL VEIN: Negative. LEFT POPLITEAL VEIN: Negative. LEFT CALF VEINS: Negative. ADDITIONAL FINDINGS: None. IMPRESSION: 1. No sonographic evidence for DVT in either lower extremity. Signer Name: Gurdeep Perez MD Signed: 12/28/2020 11:04 AM Workstation Name: [id number]
[2020-12-28 21:01] LABS: Bacteria,Urine 1+ /HPF (Negative); Bilirubin,Urine NEG (Negative); Blood,Urine LG (Negative); Color,Urine Yellow (Yellow); Urobilinogen,Urine < 2.0 mg/dL (<2.0)
[2020-12-28] MEDS ORDERED: MORPHINE 4 MG/1 ML INJ IV ONE (21:14)
[2020-12-28] MEDS ORDERED: ONDANSETRON 4 MG/2 ML INJ IV ONE (21:14)
[2020-12-28] MEDS ORDERED: FUROSEMIDE 40 MG/4 ML INJ IV ONE (21:14)
--- NOTE | 2020-12-28 23:02 | Emergency Department Report ---
ED General Adult HPI - General Chief complaint: Pain General Stated complaint: RT HAND/HIP/KNEE/FOOT PAIN Time Seen by Provider: 12/28/20 07:57 Source: patient Mode of arrival: Ambulatory Limitations: No Limitations - History of Present Illness Initial comments: 55-year-old male with past medical history of CAD arthritis, hypertension, acid reflux disease [facility] emergency department complaining of 1 to 2-week history of lower extremity swelling and pain started off to the foot and progressed to the legs and then to his right hand. States that he felt like a gouty flare is not yet tried to take any medications to avoid the symptoms. Reports no fever, chills, sweats no chest pain, no palpitation, no shortness of breath. No hemoptysis, no hematemesis hematochezia. -: Gradual Location: neck, upper extremity, lower extremity Radiation: non-radiation Severity scale (0 -10): 4 Quality: aching, dull Consistency: constant Improves with: none Worsens with: none Associated Symptoms: denies: confusion, cough, diaphoresis, loss of appetite, malaise, shortness of breath, syncope, weakness - Related Data Home Medications Medication Instructions Recorded Confirmed Last Taken Colchicine 0.6 mg PO BID 04/24/15 03/07/18 04/23/15 Amlodipine Besylate/Benazepril 1 each PO DAILY 03/07/18 03/07/18 Unknown [Amlodipine-Benazepril 5-10 mg] Folic Acid [Folvite] 1 mg PO QDAY 03/07/18 03/07/18 Unknown Previous Rx's Medication Instructions Recorded Last Taken Type Ibuprofen [Motrin 800 MG tab] 800 mg PO Q8H #30 tablet 05/18/14 Unknown Rx Colchicine 0.6 mg PO BID capsule 03/10/18 Unknown Rx HYDROcodone/APAP 5-325 [[place] 1 - 2 each PO Q6HR PRN #20 tablet 03/10/18 Unknown Rx 5-325 mg TAB] NexIUM 40 mg PO DAILY #30 03/10/18 Unknown Rx allopurinoL [Zyloprim] 300 mg PO QDAY #30 tablet 03/10/18 Unknown Rx allopurinoL [Zyloprim] 300 mg PO QDAY #30 tablet 03/10/18 Unknown Rx amLODIPine 5 mg PO QDAY tablet 03/10/18 Unknown Rx Ciprofloxacin HCl [Ciprofloxacin 750 mg PO BID #10 tablet 12/02/20 Unknown Rx TAB] Gabapentin 300 mg PO TID #30 capsule 12/02/20 Unknown Rx Furosemide [Lasix] 40 mg PO DAILY #5 tablet 12/28/20 Unknown Rx Potassium Chloride [K-Dur] 20 meq PO QDAY #5 tablet 12/28/20 Unknown Rx Allergies Allergy/AdvReac Type Severity Reaction Status Date / Time No Known Allergies Allergy Verified 12/28/20 07:57 ED Review of Systems ROS: Stated complaint: RT HAND/HIP/KNEE/FOOT PAIN Other details as noted in HPI Comment: All other systems reviewed and negative ED Past Medical Hx - Past Medical History Hx Hypertension: Yes Hx Renal Disease: No Hx Arthritis: Yes Hx Seizures: No Additional medical history: gout - Surgical History Additional Surgical History: r knee surgery - Social History Smoking Status: Never Smoker Substance Use Type: None - Medications Home Medications: Home Medications Medication Instructions Recorded Confirmed Last Taken Type Ibuprofen [Motrin 800 MG tab] 800 mg PO Q8H #30 tablet 05/18/14 03/07/18 Unknown Rx Colchicine 0.6 mg PO BID 04/24/15 03/07/18 04/23/15 History Amlodipine Besylate/Benazepril 1 each PO DAILY 03/07/18 03/07/18 Unknown History [Amlodipine-Benazepril 5-10 mg] Folic Acid [Folvite] 1 mg PO QDAY 03/07/18 03/07/18 Unknown History Colchicine 0.6 mg PO BID capsule 03/10/18 Unknown Rx HYDROcodone/APAP 5-325 [[place] 1 - 2 each PO Q6HR PRN #20 tablet 03/10/18 Unknown Rx 5-325 mg TAB] NexIUM 40 mg PO DAILY #30 03/10/18 Unknown Rx allopurinoL [Zyloprim] 300 mg PO QDAY #30 tablet 03/10/18 Unknown Rx allopurinoL [Zyloprim] 300 mg PO QDAY #30 tablet 03/10/18 Unknown Rx amLODIPine 5 mg PO QDAY tablet 03/10/18 Unknown Rx Ciprofloxacin HCl [Ciprofloxacin 750 mg PO BID #10 tablet 12/02/20 Unknown Rx TAB] Gabapentin 300 mg PO TID #30 capsule 12/02/20 Unknown Rx Furosemide [Lasix] 40 mg PO DAILY #5 tablet 12/28/20 Unknown Rx Potassium Chloride [K-Dur] 20 meq PO QDAY #5 tablet 12/28/20 Unknown Rx ED Physical Exam - General Limitations: No Limitations General appearance: alert, in no apparent distress - Head Head exam: Present: atraumatic, normocephalic - Eye Eye exam: Present: normal appearance, PERRL, EOMI Pupils: Present: normal accommodation - ENT ENT exam: Present: normal exam, normal orophraynx, mucous membranes moist, TM's normal bilaterally - Neck Neck exam: Present: normal inspection, full ROM. Absent: tenderness, meningismus, lymphadenopathy, thyromegaly - Respiratory Respiratory exam: Present: normal lung sounds bilaterally. Absent: respiratory distress, wheezes, rales, rhonchi, chest wall tenderness, accessory muscle use, decreased breath sounds, prolonged expiratory - Cardiovascular Cardiovascular Exam: Present: regular rate, normal rhythm. Absent: systolic murmur, diastolic murmur, rubs, gallop - GI/Abdominal GI/Abdominal exam: Present: soft, normal bowel sounds - Rectal Rectal exam: Present: deferred - Extremities Exam Extremities exam: Present: pedal edema (1+ pitting bilateral lower extremity swelling. No rashes no cellulitis. No lymphadenopathy. No lymphangitis.), joint swelling, other (Pulses 2+ capillary refills are brisk.) - Back Exam Back exam: Present: normal inspection, full ROM. Absent: CVA tenderness (R), CVA tenderness (L), paraspinal tenderness, vertebral tenderness - Neurological Exam Neurological exam: Present: alert, oriented X3, CN II-XII intact - Psychiatric Psychiatric exam: Present: normal affect, normal mood. Absent: flat affect, manic, homicidal ideation, suicidal ideation - Skin Skin exam: Present: warm, dry, intact, normal color. Absent: rash ED Course Vital Signs 12/28/20 12/28/20 07:56 20:56 Temperature 98.1 F 98.7 F Pulse Rate 103 H 103 H Respiratory 14 20 Rate Blood Pressure 175/79 175/79 O2 Sat by Pulse 98 97 Oximetry ED Medical Decision Making - Lab Data Result diagrams: 12/28/20 08:03 12/28/20 08:03 - Radiology Data Radiology results: report reviewed [address] [place] [id number] XRay Report Signed Patient: ОЛЕГ GROSS MR#: [id number] : 1965 Acct:[id number] Age/Sex: 55 / M ADM Date: 12/28/20 Loc: ED Attending Dr: Ordering Physician: FELIZ YANG NP Date of Service: 12/28/20 Procedure(s): XR chest routine 2V Accession Number(s): [id number] cc: FELIZ YANG NP Fluoro Time In Minutes: CHEST 2 VIEWS INDICATION / CLINICAL INFORMATION: leg swelling r/o CHF. COMPARISON: 12/02/2020 FINDINGS: SUPPORT DEVICES: None. HEART / MEDIASTINUM: Stable. LUNGS / PLEURA: No significant pulmonary or pleural abnormality. No pn eumothorax. ADDITIONAL FINDINGS: No significant additional findings. IMPRESSION: 1. No acute findings or significant interval change when compared to 12/02/2020. Signer Name: Annabelle Perez MD Signed: 12/28/2020 9:38 AM Workstation Name: [id number] Transcribed By: RH Dictated By: ANNABELLE PEREZ III Electronically Authenticated By: ANNABELLE PEREZ III Signed Date/Time: 12/28/20937 DD/ 5 TD/TT: [facility] [address] [place] [id number] Vascular Lab Report Signed Patient: ОЛЕГ GROSS MR#: [id number] : 1965 Acct:[id number] Age/Sex: 55 / M ADM Date: 12/28/20 Loc: ED Attending Dr: Ordering Physician: FELIZ YANG NP Date of Service: 12/28/20 Procedure(s): VL venous duplex LE BILAT Accession Number(s): [id number] cc: FELIZ YANG NP DUPLEX DOPPLER LOWER EXTREMITY VEINS, BILATERAL INDICATION / CLINICAL INFORMATION: pain and swelling. TECHNIQUE: Duplex doppler imaging was performed through the veins of both lower extremities using venous compression and other maneuvers. COMPARISON: None available. FINDINGS: RIGHT COMMON FEMORAL VEIN: Negative. RIGHT FEMORAL VEIN: Negative. RIGHT POPLITEAL VEIN: Negative. RIGHT CALF VEINS: Negative. LEFT COMMON FEMORAL VEIN: Negative. LEFT FEMORAL VEIN: Negative. LEFT POPLITEAL VEIN: Negative. LEFT CALF VEINS: Negative. ADDITIONAL FINDINGS: None. IMPRESSION: 1. No sonographic evidence for DVT in either lower extremity. Signer Name: Annabelle Perez MD Signed: 12/28/2020 11:04 AM Workstation Name: [id number] Transcribed By: RH Dictated By: ANNABELLE PEREZ III Electronically Authenticated By: ANNABELLE PEREZ III Signed Date/Time: 12/28/201103 DD/ 02 TD/TT: Print - Medical Decision Making 35-year-old [place] male presents emerged department complaining of joint s welling and extremity swelling and pain suspicious of what he feels is gout arthritis flareup. Labs did show his BNP to be elevated although his chest x- ray is clear he reports no chest pain no shortness of breath. No exertional dyspnea. Treated with Lasix to help diurese the fluid overload and also started some treatment for the arthritis as well. Advised patient to follow-up with his primary care provider within 48 hours for evaluation and further management of this issue. Also advised him to of the need for compliance with his Lasix. Critical care attestation.: If time is entered above; I have spent that time in minutes in the direct care of this critically ill patient, excluding procedure time. ED Disposition Clinical Impression: Pedal edema Disposition: DC-01 TO HOME OR SELFCARE Is pt being admited?: No Does the pt Need Aspirin: No Condition: Stable Instructions: Peripheral Edema, Musculoskeletal Pain, Joint Pain, [id number] Prescriptions: Potassium Chloride [K-Dur] 20 meq PO QDAY #5 tablet Furosemide [Lasix] 40 mg PO DAILY #5 tablet Referrals: PRIMARY CARE, [Primary Care Provider] - 3-[address] [facility] [Provider Group] - 3-5 Days
== END 2020-12-28 23:45 | disposition home or self-care (01) ==
LOC: ED 07:46
DX: R60.0 Localized edema (principal); I10 Essential (primary) hypertension; M10.9 Gout, unspecified; M19.90 Unspecified osteoarthritis, unspecified site; Z79.899 Other long term (current) drug therapy; Z98.890 Other specified postprocedural states
CPT/HCPCS: 36415; 71046; 80053; 81001; 83880; 84550; 85025; 93970; 96374; 96375; 99284; J1940; J2270; J2405